=== PATIENT | female | born 1965 | race Two or more races ===

== ENCOUNTER 2021-04-12 11:39 | Emergency (ER) | payer MEDICAID ==
[2021-04-12] MEDS ORDERED: Sodium Chloride 0.9% 10 ML Syringe FLUSH PRN (12:13)
[2021-04-12] MEDS ORDERED: Sodium Chloride 0.9% 1,000 ML IV ONE (12:14)
[2021-04-12] MEDS ORDERED: Meclizine 25 MG Tab PO ONE (12:14)
[2021-04-12] MEDS ORDERED: Promethazine 25 MG in Sodium Chloride 0.9% 50 ML IV ONE (12:15)
[2021-04-12] MEDS ORDERED: amLODIPine 5 MG Tab PO ONE (13:37)
--- NOTE | 2021-04-12 13:37 | EDM.PDOC ---
ED HPI GENERAL MEDICAL PROBLEM - General Chief Complaint: General Stated Complaint: FEEL LIKE GOING TO PASS OUT Time Seen by Provider: 04/12/21 11:56 Source of Information: Reports: Patient History Limitations: Reports: No Limitations - History of Present Illness INITIAL COMMENTS - FREE TEXT/NARRATIVE: 55-year-old female who is sent to the emergency department from [facility] in [place] secondary to an EKG that the is admission assessment provider felt was abnormal and secondary to dizziness. The patient reports to me that she awoke with dizziness on Monday according and force that it was room spinning dizziness she pretty much had dizziness throughout the day but typically when she was getting up and moving around and when she tried to smoke her cigarettes. Because of this she stopped smoking her cigarettes on Monday and then yesterday she felt improved and thought that her dizziness was gone she pretty much was feeling much better during the morning and then that afternoon she states she started to smoke her cigarettes again and she developed the room spinning dizziness is episodic at that time and it seemed to get better when the patient rested. She was not having any headache. There is no vision problems. There was no nausea or vomiting. At that time she was having a mild headache that she rated as a 3/10 and it was more of a pressure feeling in her head. There was no chest pain. There is no shortness of breath. Had no arm, neck, jaw or back pain. Today the dizziness seemed to continue and she felt not only room spinning at times but lightheaded and near syncopal and that caused her to present to the [facility] in [place]. She is brought to the emergency department via private vehicle with her and friend. She currently no di zziness that is somewhat room spinning with any movement of her head. He does not have a headache at present. There is no chest pain or shortness of breath. She is having no vision problems. She has had nausea associated with this but no vomiting. There has been no fevers or chills. She has had no dysuria or hematuria. The pain. There are no other associated signs or symptoms. There are no other modifying factors. I did review the EKG from the [facility] in [place] and there were some ST segment inversions her lateral leads. 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 Surgical history as detailed below.) - Past Surgical History Female Surgical History: Reports: Other (See Below) (Therapeutic 2) Social & Family History - Tobacco Use Tobacco Use Status *Q: Current Every Day Tobacco User - Alcohol Use Alcohol Use History: No - Living Situation & Occupation Living situation: Reports: Occupation: Unemployed ED ROS GENERAL - Review of Systems Review Of Systems: See Below Constitutional: Reports: Fatigue. Denies: Fever, Chills, Weakness HEENT: Denies: Hearing Loss, Throat Pain, Vision Change Respiratory: Denies: Shortness of Breath, Cough Cardiovascular: Denies: Chest Pain, Dyspnea on Exertion, Palpitations Endocrine: Reports: Fatigue. Denies: Polydypsia, Polyuria GI/Abdominal: Reports: Nausea. Denies: Diarrhea, Vomiting : Denies: Dysuria, Hematuria Musculoskeletal: Denies: Neck Pain, Arm Pain, Back Pain Skin: Denies: Diaphoresis, Rash Neurological: Reports: Dizziness, Headache (Mild). Denies: Confusion Hematologic/Lymphatic: Denies: Anemia, Easy Bleeding ED EXAM, GENERAL - Physical Exam Exam: See Below Exam Limited By: No Limitations General Appearance: Alert, WD/WN, No Apparent Distress Eye Exam: Bilateral Eye: EOMI, Normal Inspection (Sclera are anicteric) Ears: Normal External Exam, Hearing Grossly Normal Ear Exam: Bilateral Ear: Auricle Normal Nose: Normal Inspection, Normal Mucosa, No Blood Throat/Mouth: Normal Inspection, Normal Lips, Normal Oropharynx, Normal Voice, No Airway Compromise Head: Atraumatic, Normocephalic Neck: Normal Inspection, Supple, Non-Tender, Full Range of Motion Respiratory/Chest: No Respiratory Distress, Lungs Clear, Normal Breath Sounds, No Accessory Muscle Use, Chest Non-Tender Cardiovascular: Normal Peripheral Pulses, Regular Rate, Rhythm, No Murmur Peripheral Pulses: 2+: Radial (L), Radial (R) GI/Abdominal: Normal Bowel Sounds, Soft, Non-Tender, No Mass Back Exam: Normal Inspection, Full Range of Motion Extremities: Normal Inspection, Normal Range of Motion, Non-Tender, No Pedal Edema, Normal Capillary Refill Neurological: Alert, Oriented, CN II-XII Intact, Normal Cognition, No Motor/Sensory Deficits Psychiatric: Normal Affect Skin Exam: Warm, Dry, Intact, Normal Color, No Rash #1 Interpretation EKG Date: 04/12/21 Time: 11:48 Rhythm: NSR Rate (Beats/Min): 66 Morrison: Normal P-Wave: Present QRS: Normal ST-T: Other (T-wave the 3 through V6.) QT: Normal Comparison: NA - No Prior EKG Course - Vital Signs Last Recorded V/S: Last Vital Signs Temp 36.6 C 04/12/21 11:41 Pulse 73 04/12/21 11:41 Resp 20 04/12/21 11:41 BP 156/88 H 04/12/21 14:00 Pulse Ox 99 04/12/21 11:41 Orthostatic Blood Pressure [ 192/115 Standing] Orthostatic Blood Pressure [ 179/105 Sitting] Orthostatic Blood Pressure [ 167/97 Supine] - Orders/Labs/Meds Orders: Active Orders 24 hr Category Date Time Status Peripheral IV Insertion Adult [OM.PC] Routine Oth 04/12/21 12:13 Ordered EKG 12 Lead [EK] Routine Ther 04/12/21 12:13 Ordered Labs: Laboratory Tests 04/12/21 04/12/21 04/12/21 Range/Units 12:25 12:25 12:25 WBC 7.1 (3.0-10.3) x10-3/uL RBC 4.42 (3.60-5.20) x10(6)uL Hgb 13.5 (11.4-15.5) g/dL Hct 39.2 (34.2-48.2) % MCV 88.6 (76.7-100.5) fL MCH 30.5 (23.9-33.9) pg MCHC 34.4 (31.9-34.8) g/dL RDW 12.9 (12.3-16.5) % Plt Count 260 (151-488) x10(3)uL MPV 9.0 (7.1-12.4) fL Neut % (Auto) 62.0 (30.8-76.2) % Lymph % (Auto) 29.4 (18.4-52.1) % Dolores % (Auto) 4.7 (4.4-15.7) % Eos % (Auto) 3.2 (0.6-8.1) % Baso % (Auto) 0.7 (0.2-1.5) % Neut # (Auto) 4.4 (1.5-6.3) x10-3/uL Lymph # (Auto) 2.1 (1.0-4.4) x10-3/uL Dolores # (Auto) 0.3 (0.3-1.0) x10-3/uL Eos # (Auto) 0.2 (0.0-0.8) x10-3/uL Baso # (Auto) 0.0 (0.0-0.1) x10-3/uL Sodium 141 (135-145) mmol/L Potassium 4.1 (3.5-5.3) mmol/L Chloride 104 (100-110) mmol/L Carbon Dioxide 26 (21-32) mmol/L BUN 11 (7-18) mg/dL Creatinine 0.8 (0.55-1.02) mg/dL Est Cr Clr Drug Dosing 64.18 mL/min Estimated GFR (MDRD) > 60 (>60) BUN/Creatinine Ratio 13.8 (9-20) Glucose 94 (80-116) mg/dL Calcium 9.0 (8.6-10.2) mg/dL Magnesium 2.1 (1.8-2.5) mg/dL Total Bilirubin 0.3 (0.1-1.3) mg/dL AST 16 (5-25) IU/L ALT 31 (12-36) U/L Alkaline Phosphatase 76 (56-112) IU/L Troponin I 4.6 (4.0-60.3) pg/mL Total Protein 7.1 (6.0-8.0) g/dL Albumin 3.4 L (3.5-5.2) g/dL Globulin 3.7 g/dL Albumin/Globulin Ratio 0.9 TSH, Ultra Sensitive 1.18 (0.36-3.74) IU/mL Urine Color (YELLOW) Urine Appearance (CLEAR) Urine pH (5.0-6.5) Ur Specific [place] (1.010-1.025) Urine Protein (NEGATIVE) mg/dL Urine Glucose (UA) (NORMAL) mg/dL Urine Ketones (NEGATIVE) mg/dL Urine Occult Blood (NEGATIVE) Urine Nitrite (NEGATIVE) Urine Bilirubin (NEGATIVE) Urine Urobilinogen (NEGATIVE) mg/dL Ur Leukocyte Esterase (NEGATIVE) Urine WBC (0-5) Ur Squamous Epith Cells (NS,R,O) Urine Bacteria (NS) 04/12/21 Range/Units 13:20 WBC (3.0-10.3) x10-3/uL RBC (3.60-5.20) x10(6)uL Hgb (11.4-15.5) g/dL Hct (34.2-48.2) % MCV (76.7-100.5) fL MCH (23.9-33.9) pg MCHC (31.9-34.8) g/dL RDW (12.3-16.5) % Plt Count (151-488) x10(3)uL MPV (7.1-12.4) fL Neut % (Auto) (30.8-76.2) % Lymph % (Auto) (18.4-52.1) % Dolores % (Auto) (4.4-15.7) % Eos % (Auto) (0.6-8.1) % Baso % (Auto) (0.2-1.5) % Neut # (Auto) (1.5-6.3) x10-3/uL Lymph # (Auto) (1.0-4.4) x10-3/uL Dolores # (Auto) (0.3-1.0) x10-3/uL Eos # (Auto) (0.0-0.8) x10-3/uL Baso # (Auto) (0.0-0.1) x10-3/uL Sodium (135-145) mmol/L Potassium (3.5-5.3) mmol/L Chloride (100-110) mmol/L Carbon Dioxide (21-32) mmol/L BUN (7-18) mg/dL Creatinine (0.55-1.02) mg/dL Est Cr Clr Drug Dosing mL/min Estimated GFR (MDRD) (>60) BUN/Creatinine Ratio (9-20) Glucose (80-116) mg/dL Calcium (8.6-10.2) mg/dL Magnesium (1.8-2.5) mg/dL Total Bilirubin (0.1-1.3) mg/dL AST (5-25) IU/L ALT (12-36) U/L Alkaline Phosphatase (56-112) IU/L Troponin I (4.0-60.3) pg/mL Total Protein (6.0-8.0) g/dL Albumin (3.5-5.2) g/dL Globulin g/dL Albumin/Globulin Ratio TSH, Ultra Sensitive (0.36-3.74) IU/mL Urine Color Yellow (YELLOW) Urine Appearance Clear (CLEAR) Urine pH 6.0 (5.0-6.5) Ur Specific [place] 1.010 (1.010-1.025) Urine Protein Negative (NEGATIVE) mg/dL Urine Glucose (UA) Normal (NORMAL) mg/dL Urine Ketones Negative (NEGATIVE) mg/dL Urine Occult Blood Negative (NEGATIVE) Urine Nitrite Negative (NEGATIVE) Urine Bilirubin Negative (NEGATIVE) Urine Urobilinogen Normal (NEGATIVE) mg/dL Ur Leukocyte Esterase Negative (NEGATIVE) Urine WBC 0-5 (0-5) Ur Squamous Epith Cells Occasional (NS,R,O) Urine Bacteria Few H (NS) Meds: Medications Discontinued Medications Generic Name Dose Route Start Last Admin Trade Name Freq PRN Reason Stop Dose Admin Amlodipine Besylate 5 mg 04/12/21 13:37 04/12/21 14:00 Amlodipine 5 Mg Tab PO 04/12/21 13:38 5 mg ONETIME ONE Administration Promethazine HCl 25 mg/ Sodium 51 mls @ 200 mls/hr 04/12/21 12:15 04/12/21 12:42 Chloride IV 04/12/21 12:30 200 mls/hr ONETIME ONE Administration Sodium Chloride 1,000 mls @ 999 mls/hr 04/12/21 12:14 04/12/21 12:40 Normal Saline IV 04/12/21 13:14 999 mls/hr .BOLUS ONE Administration Meclizine HCl 25 mg 04/12/21 12:14 04/12/21 12:42 Meclizine 25 Mg Tab PO 04/12/21 12:15 25 mg ONETIME ONE Administration Sodium Chloride 10 ml 04/12/21 12:13 Sodium Chloride 0.9% 10 Ml Syringe FLUSH ASDIRECTED PRN Keep Vein Open - Re-Assessments/Exams Free Text/Narrative Re-Assessment/Exam: 04/12/21 13:30: The patient no longer feels dizzy. She has been to the bathroom to urinate several times. Her urinalysis is normal. Her blood tests are all reassuringly normal. Her blood pressure has been consistently elevated since she has been in the emergency department. I will give the patient amlodipine 5 mg orally. 04/12/21 14:10: The patient's blood pressure is 156/88 at present. She does feel improved. She is neurologically stable. There are no neurologic deficits. She is awake, alert and appropriate. Unsure of the exact cause of her dizziness but I suspect that she has hypertension and I will be placing her on medications (amlodipine 5 mg, chlorthalidone 25 mg) and I am having her follow-up with CAROL Goetz at [facility] in [place]. I'll also give her meclizine to use as needed for dizziness. The patient and her feel comfortable with this plan for discharge. Precautions and reasons for return to the emergency department were discussed with the patient and with her while the patient was in the emergency department and were detailed in the patient's discharge instructions. Departure - Departure Time of Disposition: 14:22 Disposition: Home, Self-Care 01 Condition: Good (Improved) Clinical Impression: Dizziness Hypertension Qualifiers: Hypertension type: unspecified Qualified Code(s): I10 - Essential (primary) hypertension - Discharge Information Prescriptions: Meclizine [Antivert] 25 mg PO Q6H PRN #12 tab PRN Reason: Dizziness Chlorthalidone 25 mg PO DAILY #30 tab amLODIPine [Norvasc] 5 mg PO DAILY #30 tab Instructions: Hypertension, Adult, [id number], Dizziness, [id number] Referrals: Sofy Nicole NP [Ordering Only Provider] - Forms: ED Department Discharge Additional Instructions: All of your blood tests were reassuringly normal. Your urine test was normal. Your EKG did show some nonspecific changes. Your blood pressure was elevated while you were in the emergency department. I suspect that you have hypertension. I also suspect that your elevated blood pressure may be part of the reason you are having the dizziness. You may also be having dizziness related to an inner ear infection from a virus. I am placing you medications for your blood pressure (amlodipine 5 mg, chlorthalidone 25 mg) and you should take these medications every day to treat your blood pressure. I have also given you a prescription of medication that you can take as needed for dizziness (Antivert 25 mg). You need to arrange an appointment with Sofy Nicole NP at [facility] in [place] in the next 1-2 weeks to follow-up about your high blood pressure. You may also need to have other things checked out as well. Increase your fluid intake. Try to stop smoking. Back to the emergency department for chest pain, shortness of breath, worsening dizziness, pass out spells or any other concerning signs or symptoms. Sepsis Event Note (ED) - Evaluation Sepsis Screening Result: No Definite Risk - My Orders Last 24 Hours: My Active Orders 04/12/21 12:13 Peripheral IV Insertion Adult [OM.PC] Routine EKG 12 Lead [EK] Routine - Assessment/Plan Last 24 Hours: My Active Orders 04/12/21 12:13 Peripheral IV Insertion Adult [OM.PC] Routine EKG 12 Lead [EK] Routine
== END 2021-04-12 14:42 | disposition home or self-care (01) ==
LOC: FB.ED 11:39
DX: I10 Essential (primary) hypertension (principal); F17.210 Nicotine dependence, cigarettes, uncomplicated; Z79.899 Other long term (current) drug therapy
CPT/HCPCS: 36415; 80053; 81001; 83735; 84443; 84484; 85025; 93005; 93010; 96374; 99283; 99284-25; A9270-GY; J2550; J7030